=== PATIENT | male | born 1985 | race Caucasian/White ===

== ENCOUNTER 2017-02-26 23:01 | Emergency (ER) | payer SELFPAY ==
[2017-02-26 23:17] VITALS: RESP 18; O2SAT 98
[2017-02-27 00:26] VITALS: BP 121/77; PULSE 57; TEMP 98.1
--- NOTE | 2017-02-27 00:38 | C.PDOC ---
History Of Present Illness 31 year old male presents to the ER with a complaint of fever, chills, body aches, sore throat, cough with thick green phlegm since last night. 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 Denies vomiting or diarrhea. Time Seen by Provider: 02/26/17 23:13 Chief Complaint (Nursing): Flu-like Symptoms History Per: Patient History/Exam Limitations: no limitations Onset/Duration Of Symptoms: Days Current Symptoms Are (Timing): Still Present Location Of Pain: Throat, Diffuse Myalgias Sick Contacts (Context): None Associated Symptoms: Fever, Chills, Sore Throat, Cough, Sputum. denies: Vomiting, Diarrhea Ear Symptoms: Bilateral: None Recent travel outside of the [place]: No Past Medical History Reviewed: Historical Data, Nursing Documentation, Vital Signs Vital Signs: Last Vital Signs Temp 98.1 F 02/27/17 00:25 Pulse 57 L 02/27/17 00:25 Resp 18 02/27/17 00:25 BP 121/77 02/27/17 00:25 Pulse Ox 98 02/27/17 02:33 Family History: States: Unknown Family Hx - Social History Hx Tobacco Use: No Hx Alcohol Use: No Hx Substance Use: No - Immunization History Hx Tetanus Toxoid Vaccination: No Hx Influenza Vaccination: No Hx Pneumococcal Vaccination: No Review Of Systems Constitutional: Positive for: Fever, Chills ENT: Positive for: Throat Pain Respiratory: Positive for: Cough, Sputum Gastrointestinal: Negative for: Nausea, Vomiting Physical Exam - Physical Exam Appears: Non-toxic, No Acute Distress Skin: Normal Color, Warm, Dry, No Rash Head: Atraumatic, Normacephalic Eye(s): bilateral: Normal Inspection, PERRL, EOMI Ear(s): Bilateral: Normal Nose: Normal Oral Mucosa: Moist Throat: Normal, No Erythema, No Exudate Neck: Normal, Supple Chest: Symmetrical, No Tenderness Cardiovascular: Rhythm Regular, No Friction Rub, No Murmur Respiratory: Normal Breath Sounds, No Rales, No Rhonchi, No Wheezing Gastrointestinal/Abdominal: Soft, No Tenderness Back: Normal Inspection, No CVA Tenderness Extremity: Normal ROM Neurological/Psych: Oriented x3, Normal Speech, Normal Motor Gait: Steady ED Course And Treatment O2 Sat by Pulse Oximetry: 98 (on RA) Pulse Ox Interpretation: Normal Medical Decision Making Medical Decision Making: Flu swab and rapid strep ordered, results were negative. Claritin, tamiflu, and prednisone administered, patient reports improvement of symptoms. Will discharge home with Rx and instructions to follow up with PMD for further evaluation. On re-exam, the patient reports improvement of symptoms. Lungs are CTA, heart is RRR, abdomen is soft, non-tender and the patient is tolerating PO well. Ambulatory in the ED with steady gait. Disposition - Disposition Referrals: [facility] [Outside] Disposition: HOME/ ROUTINE Disposition Time: 00:35 Condition: GOOD Additional Instructions: The Influenza A&B was negative but you have symptoms of the flu. Tamiflu was given today Follow up with the medical doctor/clinic within 1-2 days without fail. Return if worsened. 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 - Scribe Statement The provider has reviewed the documentation as recorded by the Scribmaria isabel Santos All medical record entries made by the Beka were at my direction and personally dictated by me. I have reviewed the chart and agree that the record accurately reflects my personal performance of the history, physical exam, medical decision making, and the department course for this patient. I have also personally directed, reviewed, and agree with the discharge instructions and disposition.
== END 2017-02-27 00:53 | disposition home or self-care (01) ==
LOC: C.ER 23:01
DX: J11.1 Influenza due to unidentified influenza virus with other respiratory manifestations (principal)